=== PATIENT | male | born 1985 | race Caucasian/White ===

== ENCOUNTER → 2021-06-01 13:01 | Outpatient (CLI) | payer OTHER, SELFPAY ==
[2021-06-01 16:24] LABS: Vitamin D 25 Hydroxy (D3) 60.5 ng/mL (30.0-100.0)
== END ==
PROVIDERS: Referring Provider Orthopaedic Surgery Foot and Ankle Surgery; Visit Provider Orthopaedic Surgery Foot and Ankle Surgery
DX: E55.9 Vitamin D deficiency, unspecified (principal)
CPT/HCPCS: 36415; 82306

== ENCOUNTER → 2021-06-02 16:12 | Outpatient (CLI) | payer OTHER, SELFPAY ==
[2021-06-02 17:15] LABS: Add Manual Diff / Slide Review NO; Appearance Urine UA CLEAR; Basophils Absolute Auto 0 /uL (0-100); Basophils Percent Auto 0.7 % (0-2); Bilirubin Urine UA NEGATIVE (NEGATIVE); Color Urine UA YELLOW; Eosinophils Absolute Auto 100 /uL (0-450); Eosinophils Percent Auto 1.3 % (2-4); Glucose Urine UA NEGATIVE (Negative); Hematocrit 41.8 % (41-53); Hemoglobin 14.2 g/dL (13.5-17.5); Ketones Urine UA NEGATIVE (NEGATIVE); Leukocyte Esterase Urine UA NEGATIVE (NEGATIVE); Lymphocytes Absolute Auto 1500 /uL (1100-4500); Lymphocytes Percent Auto 20.6 % (25-40); Mean Corpuscular Hemoglobin 29.9 PG (26-34); Mean Corpuscular Volume 87.9 fL (80-100); Monocytes Absolute Auto 500 /uL (0-900); Monocytes Percent Auto 7.6 % (3-14); Neutrophils Absolute Auto 5000 /uL (1500-7000); Neutrophils Percent Auto 69.8 % (50-75); Nitrite Urine UA NEGATIVE (Negative); Occult Blood Urine UA NEGATIVE (Negative); Platelet Count 335 X10^3/uL (150-400); Protein Urine UA NEGATIVE (Negative); Red Blood Cell Count 4.76 X10^6/uL (4.5-5.9); Urobilinogen Urine UA 0.2 E.U./dL (0.2); White Blood Cell Count 7.2 X10^3/uL (4.5-11.0); pH Urine UA 5.5 (4.5-8.0)
[2021-06-02 17:33] LABS: Bacteria Urine None Seen; Culture Indicated Urine Cult Not Indicated; RBC Urine 0-1/HPF (0-5/HPF); WBC Urine 0-1/HPF (0-5/HPF)
[2021-06-02 18:02] LABS: BUN Creatinine Ratio 15.3 (6-22); Blood Urea Nitrogen 18 mg/dL (9-20); Calcium 10.2 mg/dL (8.4-10.2); Carbon Dioxide 28 mmol/L (22-32); Chloride 101 mmol/L (98-107); Estimated Glomerular Filt Rate > 60.0 mL/min (>60); Glucose 85 mg/dL (70-100); HEMOLYSIS < 15 (0-50); Potassium 4.5 mmol/L (3.4-5.1); Sodium 139 mmol/L (137-145)
[2021-06-02 18:04] LABS: Hemoglobin A1C% w Est Avg Glu 5.1 % (4.0-6.0)
== END ==
PROVIDERS: Referring Provider Orthopaedic Surgery Foot and Ankle Surgery; Visit Provider Orthopaedic Surgery Foot and Ankle Surgery
DX: Z01.818 Encounter for other preprocedural examination (principal); Z01.812 Encounter for preprocedural laboratory examination; R73.9 Hyperglycemia, unspecified; N39.0 Urinary tract infection, site not specified
CPT/HCPCS: 36415; 80048; 81001; 83036; 85025; 93005; 93010

== ENCOUNTER 2021-11-13 11:59 | Emergency (ER) | payer OTHER, SELFPAY ==
[2021-11-13 12:19] VITALS: BP 165/80; PULSE 83; RESP 18; TEMP 36.9; O2SAT 100; BMI 33.0
[2021-11-13] MEDS: SODIUM CHLORIDE 0.9% 1,000 ML 1000 ML IV (12:38)
--- NOTE | 2021-11-13 12:49 | ED.NAVMDI ---
HPI - Nausea/Vomiting/Diarrhea <AARTI Humphreys - Last Filed: 11/13/21 17:45> General Chief complaint: Nausea/Vomiting/Diarrhea Stated complaint: Blood in stool- sent by Dhara GREENBERG Time Seen by Provider: 11/13/21 12:18 Source: patient Mode of arrival: Ambulatory History of Present Illness HPI Narrative: This is a 36-year-old gentleman who presents to the emergency department complaining of frequent diarrhea and blood in stool since returning from [facility]. Patient states that he was in [place] for 27 days, was sick 2 times there with vomiting, denies if he had a fever, states that he returned to [facility] on 11/08/2021, has been sick since he returned with diarrhea, he denies vomiting. He states that he has an episode of loose stool every 40 minutes. 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 He went to [facility] primary care the walk-in clinic who ordered a giardia, fecal occult blood, C diff PCR, H pylori stool, stool culture, stool for O&P and over the and results from some of those are pending. His C diff PCR was negative, his fecal occult blood was positive. The culture, O& P, OV, H pylori, and Giardia are all still pending. Related Data Home Medications Medication Instructions Recorded Confirmed ondansetron 4 mg disintegrating 4 mg PO Q8HR PRN 11/13/21 11/13/21 tablet Previous Rx's Medication Instructions Recorded loperamide 2 mg tablet 2 mg PO QID PRN #14 tab 11/13/21 ondansetron 4 mg disintegrating 4 mg PO Q8HR PRN #14 tab 11/13/21 tablet vancomycin 125 mg capsule 125 mg PO QID 15 Days #60 cap 11/13/21 Allergies Allergy/AdvReac Type Severity Reaction Status Date / Time haloperidol [From Haldol] Allergy Severe Anaphylaxis Verified 11/13/21 12:23 Review of Systems <AARTI Humphreys - Last Filed: 11/13/21 17:45> Review of Systems Narrative: General: denies fever, chills, malaise, sweats, fatigue Head/Neck: denies headache, neck pain, dizziness Eyes: denies visual changes, eye pain Cardio: denies chest pain, palpitations, edema Respiratory: denies dyspnea, cough, orthopnea GI: denies abdominal pain, nausea, vomiting, endorses frequent diarrhea every 45 minutes : denies dysuria, hematuria, urinary retention, frequency or incontinence MSK: denies joint pain, muscle weakness Skin: denies rash, itching, skin lesions or other Neuro: denies numbness, tingling Patient History <AARTI Humphreys - Last Filed: 11/13/21 17:45> Social History Smoking Status: Never smoker Smoking Status: Never smoker alcohol intake frequency: 0-2 drinks per day Substance Use Type: marijuana Exam <AARTI Humphreys - Last Filed: 11/13/21 17:45> Narrative Exam Narrative: Independently reviewed vitals signs and nursing notes. General: cooperative, comfortable, in no acute distress, well developed and well groomed Head: atraumatic, symmetrical facial expressions Neck: supple, atraumatic, without lymphadenopathy. Eyes: pupils equal round and reactive, EOMI, conjunctiva normal Nose: nares patent, no rhinorrhea Mouth/Throat: uvula midline, moist mucus membranes Cardiovascular: regular rate and rhythm, no peripheral edema, warm extremities Respiratory: normal effort, able to speak in complete sentences, no audible wheezing, stridor, or rales. No retractions or tachypnea. GI: abdomen soft, nontender to palpation x 4 quadrants, nondistended, no masses, no exquisite tenderness with exam, without guarding or rebound. No epigastric pain MSK: moves all extremities, ambulatory w/steady gait, neurovascularly intact, no weakness Skin: brisk capillary refill, no rash, no erythema Neuro: normal speech and cognition, A&O x3, normal tone Psych: mental status is grossly normal, congruent mood, normal affect, pleasant and cooperative Initial Vital Signs Initial Vital Signs: Vital Signs Temperature 98.5 F 11/13/21 12:19 Pulse Rate 83 11/13/21 12:19 Respiratory Rate 18 11/13/21 12:19 Blood Pressure 165/80 H 11/13/21 12:19 Pulse Oximetry 100 11/13/21 12:19 <Aurea Tello MD - Last Filed: 11/14/21 07:38> Initial Vital Signs Initial Vital Signs: Vital Signs Temperature 98.5 F 11/13/21 12:19 Pulse Rate 83 11/13/21 12:19 Respiratory Rate 18 11/13/21 12:19 Blood Pressure 165/80 H 11/13/21 12:19 Pulse Oximetry 100 11/13/21 12:19 Procedures <AARTI Humphreys - Last Filed: 11/13/21 17:45> Stool Hemoccult Hemoccult result: positive Course <AARTI Humphreys - Last Filed: 11/13/21 17:45> Orders Ordered: Discontinued Medications Sodium Chloride (Normal Saline 0.9%) 1,000 mls @ 1,000 mls/hr IV BOLUS ONE Stop: 11/13/21 13:35 Last Infusion: 11/13/21 14:01 Dose: 0 mls/hr Documented by: Admin: 11/13/21 12:38 Dose: 1,000 mls/hr Documented by: LUIS Azithromycin 1,000 mg/ (Dextrose) 250 mls @ 250 mls/hr IV NOW ONE Stop: 11/13/21 12:56 Last Infusion: 11/13/21 14:33 Dose: 0 mls/hr Documented by: Admin: 11/13/21 13:28 Dose: 250 mls/hr Documented by: LUIS Lorazepam (Lorazepam 0.5 Mg Tablet) 1 mg PO NOW ONE Stop: 11/13/21 13:35 Last Admin: 11/13/21 14:33 Dose: 1 mg Documented by: LUIS Ondansetron HCl (Ondansetron 4 Mg/2 Ml Inj) 4 mg IV NOW ONE Stop: 11/13/21 12:37 Last Admin: 11/13/21 13:28 Dose: 4 mg Documented by: LUIS Vital Signs Vital signs: Vital Signs - 8 hr 11/13/21 12:19 11/13/21 15:00 Temperature 98.5 F Pulse Rate 83 72 Respiratory Rate 18 17 Blood Pressure 165/80 H 122/78 Pulse Oximetry 100 99 <Aurea Tello MD - Last Filed: 11/14/21 07:38> Orders Ordered: Discontinued Medications Sodium Chloride (Normal Saline 0.9%) 1,000 mls @ 1,000 mls/hr IV BOLUS ONE Stop: 11/13/21 13:35 Last Infusion: 11/13/21 14:01 Dose: 0 mls/hr Documented by: Admin: 11/13/21 12:38 Dose: 1,000 mls/hr Documented by: LUIS Azithromycin 1,000 mg/ (Dextrose) 250 mls @ 250 mls/hr IV NOW ONE Stop: 11/13/21 12:56 Last Infusion: 11/13/21 14:33 Dose: 0 mls/hr Documented by: Admin: 11/13/21 13:28 Dose: 250 mls/hr Documented by: LUIS Lorazepam (Lorazepam 0.5 Mg Tablet) 1 mg PO NOW ONE Stop: 11/13/21 13:35 Last Admin: 11/13/21 14:33 Dose: 1 mg Documented by: LUIS Ondansetron HCl (Ondansetron 4 Mg/2 Ml Inj) 4 mg IV NOW ONE Stop: 11/13/21 12:37 Last Admin: 11/13/21 13:28 Dose: 4 mg Documented by: LUIS Vital Signs Vital signs: Vital Signs - 8 hr 11/13/21 12:19 11/13/21 15:00 Temperature 98.5 F Pulse Rate 83 72 Respiratory Rate 18 17 Blood Pressure 165/80 H 122/78 Pulse Oximetry 100 99 MDM - Nausea/Vomiting/Diarrhea <AARTI Humphreys - Last Filed: 11/13/21 17:45> Lab Data Result diagrams: 11/13/21 13:27 11/13/21 13:27 Labs: Lab Results 11/13/21 11/13/21 11/13/21 Range/Units 13:10 13:27 13:27 WBC 7.7 (4.5-11.0) X10^3/uL RBC 4.47 L (4.5-5.9) X10^6/uL Hgb 13.3 L (13.5-17.5) g/dL Hct 39.0 L (41-53) % MCV 87.2 (80-100) fL MCH 29.8 (26-34) PG MCHC 34.2 (30-36) % RDW 14.0 (11.6-14.8) % Plt Count 283 (150-400) X10^3/uL Neut % (Auto) 69.5 (50-75) % Lymph % (Auto) 15.7 L (25-40) % [place] % (Auto) 12.4 (3-14) % Eos % (Auto) 1.8 L (2-4) % Baso % (Auto) 0.6 (0-2) % Neut # (Auto) 5400 (5697-4072) /uL Lymph # (Auto) 1200 (9749-2819) /uL [place] # (Auto) 1000 H (0-900) /uL Eos # (Auto) 100 (0-450) /uL Baso # (Auto) 0 (0-100) /uL Sodium 141 (137-145) mmol/L Potassium 3.7 (3.4-5.1) mmol/L Chloride 107 (98-107) mmol/L Carbon Dioxide 26 (22-32) mmol/L BUN 14 (9-20) mg/dL Creatinine 1.07 (0.66-1.25) mg/dL Estimated GFR > 60 (>60) mL/min BUN/Creatinine Ratio 13.1 (6-22) Glucose 81 (70-100) mg/dL Calcium 8.7 (8.4-10.2) mg/dL Total Bilirubin 0.5 (0.2-1.3) mg/dL AST 40 (17-59) IU/L ALT 24 (<50) IU/L Alkaline Phosphatase 103 (38-126) U/L Total Protein 7.9 (6.3-8.2) g/dL Albumin 4.4 (3.5-5.0) g/dL Globulin 3.5 (1.7-4.1) g/dL Albumin/Globulin Ratio 1.3 (1.0-2.8) Lipase 450 H (23-300) U/L Stl C. cayetanensis PCR Not detected (Not Detect) Stool Rotavirus (PCR) Not detected (Not Detect) Stool Adenovirus (PCR) Not detected (Not Detect) Stool Astrovirus (PCR) Not detected (Not Detect) Stool Cryptosporidium PCR Not detected (Not Detect) Stl E.coli Shiga Tox PCR Not detected (Not Detect) St Sh/Enteroin Ecoli PCR Not detected (Not Detect) Stool E coli O157 PCR Not Reportable Stl Enterotoxigenic E PCR Not detected (Not Detect) Stool EPEC (PCR) Not detected (Not Detect) Stl E. histolytica PCR Not detected (Not Detect) Stool Giardia Lamblia PCR Not detected (Not Detect) Stool Sapovirus (PCR) Not detected (Not Detect) Stl P. shigelloides PCR Not detected (Not Detect) St Y.enterocolitica PCR Not detected (Not Detect) Stool Vibrio (PCR) Not detected (Not Detect) Stl Vibrio cholerae PCR Not detected (Not Detect) Stl Enteroaggr Ecoli PCR Detected H (Not Detect) Stl Norovirus GI/GII PCR Not detected (Not Detect) Campylobacter (PCR) Detected H (Not Detect) C. difficile Tox (PCR) Detected H (Not Detect) Salmonella (PCR) Not detected (Not Detect) Urine Dip Bedside Urine Glucose Negative Bedside Urine Bilirubin - Negative Bedside Urine Ketone - Negative Urine Specific [place] 1.03 Bedside Urine Occult Blood - Negative Bedside Urine pH 5.5 Bedside Urine Protein - Negative Bedside Urine Urobilinogen - Negative Bedside Urine Nitrite - Negative Bedside Urine Leukocytes - Negative Esterase MDM Narrative Medical decision making narrative: This is a 36-year-old male who presents to the emergency department from [facility] after his guaiac stool was positive. Patient was in [facility] for 27 days, he return to the [place] on 11/08/2021 and states that he has been having diarrhea since he return. He states that he was sick 2 times while he was in [facility]. He denies having a fever, endorses having watery stool every 45 minutes, states that he is color blind in did not know if there was blood in it. Hemoccult today was positive. Lab work reveals no leukocytosis, lipase elevated at 450, no priors to compare to, no elevation in liver enzymes or total bilirubin, hemoglobin of 13.3 and hematocrit of 39.0. Test yesterday, C difficile also was negative yesterday, and today a GI panel was run, he tested positive for Campylobacter, C difficile, and Enteroaggr Ecoli. He was given 1 g of IV azithromycin, 2 L of normal saline for dehydration, stool culture was canceled as 1 is pending from [facility]. Stool ova and parasite is still pending. Patient was prescribed Zofran, instructed to not take any loperamide as this was prescribed prior to his C diff being positive, and oral vancomycin 250 mg q.i.d. for 15 days in total. Patient was encouraged to follow-up with his primary care provider, his chart was sent to her, was given information about this, and strict return precautions for any worsening of his symptoms, fever, blood in his stool, worsening pain, or any other concerning symptom. 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 No peritoneal signs on abdominal exam. Patient remains p.o. tolerant. Serial abdominal exam without increase in abdominal pain. Given history and exam, low suspicion for acute abdominal process, such as acute cholecystitis, pancreatitis, perforated viscus, atypical appendicitis, colitis, diverticulitis or torsion. Extensive conversation about ER return precautions and need for close follow-up. Patient is appropriate and amenable to discharge home. Vital signs are stable on repeat examination is unremarkable. Patient has been informed of results. Patient has been given strict return to ER precautions for any new or worsening symptoms. Patient understands to follow up closely with outpatient providers as instructed. Patient understands plan and agrees to discharge home. All questions and concerns answered at this time. <Aurea Tello MD - Last Filed: 11/14/21 07:38> Lab Data Labs: Lab Results 11/13/21 11/13/21 11/13/21 Range/Units 13:10 13:27 13:27 WBC 7.7 (4.5-11.0) X10^3/uL RBC 4.47 L (4.5-5.9) X10^6/uL Hgb 13.3 L (13.5-17.5) g/dL Hct 39.0 L (41-53) % MCV 87.2 (80-100) fL MCH 29.8 (26-34) PG MCHC 34.2 (30-36) % RDW 14.0 (11.6-14.8) % Plt Count 283 (150-400) X10^3/uL Neut % (Auto) 69.5 (50-75) % Lymph % (Auto) 15.7 L (25-40) % [place] % (Auto) 12.4 (3-14) % Eos % (Auto) 1.8 L (2-4) % Baso % (Auto) 0.6 (0-2) % Neut # (Auto) 5400 (3409-2303) /uL Lymph # (Auto) 1200 (3386-5664) /uL [place] # (Auto) 1000 H (0-900) /uL Eos # (Auto) 100 (0-450) /uL Baso # (Auto) 0 (0-100) /uL Sodium 141 (137-145) mmol/L Potassium 3.7 (3.4-5.1) mmol/L Chloride 107 (98-107) mmol/L Carbon Dioxide 26 (22-32) mmol/L BUN 14 (9-20) mg/dL Creatinine 1.07 (0.66-1.25) mg/dL Estimated GFR > 60 (>60) mL/min BUN/Creatinine Ratio 13.1 (6-22) Glucose 81 (70-100) mg/dL Calcium 8.7 (8.4-10.2) mg/dL Total Bilirubin 0.5 (0.2-1.3) mg/dL AST 40 (17-59) IU/L ALT 24 (<50) IU/L Alkaline Phosphatase 103 (38-126) U/L Total Protein 7.9 (6.3-8.2) g/dL Albumin 4.4 (3.5-5.0) g/dL Globulin 3.5 (1.7-4.1) g/dL Albumin/Globulin Ratio 1.3 (1.0-2.8) Lipase 450 H (23-300) U/L Stl C. cayetanensis PCR Not detected (Not Detect) Stool Rotavirus (PCR) Not detected (Not Detect) Stool Adenovirus (PCR) Not detected (Not Detect) Stool Astrovirus (PCR) Not detected (Not Detect) Stool Cryptosporidium PCR Not detected (Not Detect) Stl E.coli Shiga Tox PCR Not detected (Not Detect) St Sh/Enteroin Ecoli PCR Not detected (Not Detect) Stool E coli O157 PCR Not Reportable Stl Enterotoxigenic E PCR Not detected (Not Detect) Stool EPEC (PCR) Not detected (Not Detect) Stl E. histolytica PCR Not detected (Not Detect) Stool Giardia Lamblia PCR Not detected (Not Detect) Stool Sapovirus (PCR) Not detected (Not Detect) Stl P. shigelloides PCR Not detected (Not Detect) St Y.enterocolitica PCR Not detected (Not Detect) Stool Vibrio (PCR) Not detected (Not Detect) Stl Vibrio cholerae PCR Not detected (Not Detect) Stl Enteroaggr Ecoli PCR Detected H (Not Detect) Stl Norovirus GI/GII PCR Not detected (Not Detect) Campylobacter (PCR) Detected H (Not Detect) C. difficile Tox (PCR) Detected H (Not Detect) Salmonella (PCR) Not detected (Not Detect) Urine Dip Bedside Urine Glucose Negative Bedside Urine Bilirubin - Negative Bedside Urine Ketone - Negative Urine Specific [place] 1.03 Bedside Urine Occult Blood - Negative Bedside Urine pH 5.5 Bedside Urine Protein - Negative Bedside Urine Urobilinogen - Negative Bedside Urine Nitrite - Negative Bedside Urine Leukocytes - Negative Esterase Discharge Plan Departure Patient Disposition: Home Clinical Impression: Traveler's diarrhea, Clostridium difficile infection, Campylobacter diarrhea, Other and unspecified Escherichia coli (E. coli) Instructions: DI for Diarrhea and Traveler's Diarrhea -- Adult, Clostridium difficile Infection Activity Restrictions/Additional Instructions: *You have been diagnosed with traveler's diarrhea that tested positive for blood. Your H pylori was negative, your C diff was negative, your stool cultures and ova and parasite, and Giardia tests are still pending. We sent a full PCR of your stool testing for all things, we will call you if these come back positive for anything that needs treatment. We will send these results to your primary care provider as well. Please use Zofran as needed for nausea, try and stay hydrated with electrolyte drinks and oral rehydration solution. Have included a copy of simple easy to make things that you likely have at home to help yourself stay hydrated with electrolytes. Please start with a bland diet when you start eating regular food, easy to absorb things will likely go smoother. Avoid fiber and fats. I hope that you start feeling better soon, today your given 1 g of azithromycin to treat your traveler's diarrhea. If you have ongoing diarrhea and would like to decrease the amount of stools your having in a day, you may start using loperamide every 2 hours as needed for a maximum of 16 mg in 24 hours. Please use caution with taking too much of these, if you have any worsening of your symptoms, please return to the emergency department for another evaluation. Wishing you the best. Please follow-up with your primary care provider next week. Thank you for trusting us with your care, I hope you are feeling better soon. *What to do: *Please continue to take your regular medications as directed. [x ] New medication prescriptions sent to your pharmacy: [ [facility]] [ ] New medication written as a paper prescription [ ] No new medications given *Please follow up with your primary care provider in 2-3 days, call for an appointment. Let them know you were seen in the Emergency Department and that we asked that you be seen for follow-up. We will electronically transmit a record of today's note if your PCP is in our system *If you do not have a primary care provider please contact [phone] to establish care with one of the [facility] primary care providers. *Return to Emergency Department if you should have any new, worsening or concerning symptoms, such as [fever greater than 101F, chills, worsening pain, persistent vomiting or other bothersome symptoms] Prescriptions: New ondansetron 4 mg tablet,disintegrating 4 mg PO Q8HR PRN (Reason: nausea and vomiting) Qty: 14 0RF loperamide 2 mg tablet 2 mg PO QID PRN (Reason: loose stool) Qty: 14 0RF vancomycin 125 mg capsule 125 mg PO QID 15 Days Qty: 60 0RF No Action ondansetron 4 mg tablet,disintegrating 4 mg PO Q8HR PRN (Reason: nausea/vomiting) 0RF Label Comments: DISSOLVE 1 TABLET ON THE TONGUE EVERY 8 HOURS NEEDED FOR NAUSEA OR VOMITING Referrals: Kalyani Araiza, [employer]OR [employer]ING INSTALLER-[employer] [Primary Care Provider] - <Aurea Tello MD - Last Filed: 11/14/21 07:38> [facility]: I was immediately available in the department for consultation throughout this patient's visit. I agree with documentation as above. Aurea Tello MD
[2021-11-13] MEDS: AZITHROMYCIN 1,000 MG in DEXTROSE 5% IN WATER 250 ML IV (13:28)
[2021-11-13] MEDS: ONDANSETRON 4 MG/2 ML INJ IV (13:28)
[2021-11-13 13:32] LABS: Add Manual Diff / Slide Review NO; Basophils Absolute Auto 0 /uL (0-100); Basophils Percent Auto 0.6 % (0-2); Eosinophils Absolute Auto 100 /uL (0-450); Eosinophils Percent Auto 1.8 % (2-4); Hemoglobin 13.3 g/dL (13.5-17.5); Lymphocytes Absolute Auto 1200 /uL (1100-4500); Lymphocytes Percent Auto 15.7 % (25-40); Mean Corpuscular HGB Conc 34.2 % (30-36); Mean Corpuscular Hemoglobin 29.8 PG (26-34); Mean Corpuscular Volume 87.2 fL (80-100); Monocytes Absolute Auto 1000 /uL (0-900); Monocytes Percent Auto 12.4 % (3-14); Neutrophils Absolute Auto 5400 /uL (1500-7000); Neutrophils Percent Auto 69.5 % (50-75); Platelet Count 283 X10^3/uL (150-400); Red Blood Cell Count 4.47 X10^6/uL (4.5-5.9); White Blood Cell Count 7.7 X10^3/uL (4.5-11.0)
[2021-11-13 13:46] LABS: Alanine Aminotransferase 24 IU/L (<50); Albumin 4.4 g/dL (3.5-5.0); Albumin Globulin Ratio 1.3 (1.0-2.8); Alkaline Phosphatase 103 U/L (38-126); Aspartate Aminotransferase 40 IU/L (17-59); BUN Creatinine Ratio 13.1 (6-22); Bilirubin Total 0.5 mg/dL (0.2-1.3); Blood Urea Nitrogen 14 mg/dL (9-20); Calcium 8.7 mg/dL (8.4-10.2); Carbon Dioxide 26 mmol/L (22-32); Chloride 107 mmol/L (98-107); Estimated Glomerular Filt Rate > 60 mL/min (>60); Globulin 3.5 g/dL (1.7-4.1); Glucose 81 mg/dL (70-100); HEMOLYSIS < 15 (0-50); Lipase 450 U/L (23-300); Potassium 3.7 mmol/L (3.4-5.1); Sodium 141 mmol/L (137-145); Total Protein 7.9 g/dL (6.3-8.2)
[2021-11-13] MEDS: LORazepam 0.5 MG TABLET 1 MG PO (14:33)
[2021-11-13 14:50] LABS: Adenovirus F 40/41 Not Detected (Not Detect); Astrovirus Not Detected (Not Detect); Campylobacter Detected (Not Detect); Cryptosporidium Not Detected (Not Detect); Cyclospora cayetanensis Not Detected (Not Detect); Entamoeba histolytica Not Detected (Not Detect); Enteropathogenic E.coli Not Detected (Not Detect); Enterotoxigenic E.coli It/st Not Detected (Not Detect); Giardia lamblia Not Detected (Not Detect); Norovirus GI/GII Not Detected (Not Detect); Plesiomonsa shigelloides Not Detected (Not Detect); Rotavirus A Not Detected (Not Detect); Salmonella Not Detected (Not Detect); Sapovirus Not Detected (Not Detect); Shiga-like toxin-prod E.coli Not Detected (Not Detect); Shigella/Enteroinvasive E.coli Not Detected (Not Detect); Vibrio Not Detected (Not Detect); Vibrio cholerae Not Detected (Not Detect); Yersinia enterocolitica Not Detected (Not Detect)
[2021-11-13 14:51] LABS: Clostridium difficile toxin AB Detected (Not Detect); Enteroaggregative E.coli Detected (Not Detect)
[2021-11-13 15:00] VITALS: BP 122/78; PULSE 72; RESP 17; O2SAT 99
== END 2021-11-13 15:37 | disposition home or self-care (01) ==
PROVIDERS: Emergency Provider Nurse Practitioner Critical Care Medicine; PCP Registered Nurse
DX: A04.72 Enterocolitis due to Clostridium difficile, not specified as recurrent (principal); A04.5 Campylobacter enteritis; B96.20 Unspecified Escherichia coli [E. coli] as the cause of diseases classified elsewhere
CPT/HCPCS: 36415; 80053; 81003; 83690; 85025; 87324; 87507; 96361; 96365; 96375; 99284; J2405